=== PATIENT | male | born 1990 | race African-American/Black ===

== ENCOUNTER 2021-06-18 03:08 | Emergency (ER) | payer MEDICAID ==
[~2021-06-18] VITALS: Ht 172.7 cm; Wt 450.0 kg
[2021-06-18] MEDS ORDERED: IBUP-2029 MT (05:58)
[2021-06-18] MEDS ORDERED: CEPH500C2 MT (05:58)
[2021-06-18] MEDS ORDERED: IBUPROFEN 600MG TABLET PO ONE (06:00)
[2021-06-18] MEDS ORDERED: CEPHALEXIN 250MG CAPSULE PO ONE (06:00)
[2021-06-18 06:22] VITALS: BP 152/99
== END 2021-06-18 06:28 | disposition home or self-care (01) ==
LOC: ER 03:08
DX: L03.113 Cellulitis of right upper limb (principal); J45.909 Unspecified asthma, uncomplicated; I10 Essential (primary) hypertension; R73.03 Prediabetes
CPT/HCPCS: 99283